=== PATIENT | male | born 1990 | race Two or more races ===

== ENCOUNTER 2022-12-14 12:11 | Emergency (ER) | payer MEDICAID ==
[2022-12-14 12:32] LABS: BASOPHILS % (AUTO) 0.5 %; HCT - HEMATOCRIT 39.2 % (42.0-52.0); LYMPHOCYTES # (AUTO) 1.3 10^3/uL (1.5-3.5); LYMPHOCYTES % (AUTO) 23.8 %; MEAN CORPUSCULAR HEMOGLOBIN 24.3 pg (27.0-31.0); MEAN CORPUSCULAR HGB CONC 30.6 g/dL (32.0-36.0); MEAN CORPUSCULAR VOLUME 79.5 fL (80.0-94.0); MEAN PLATELET VOLUME 11.2 fL (7.4-11.4); MONOCYTES # (AUTO) 0.7 10^3/uL (0.0-1.0); MONOCYTES % (AUTO) 12.3 %; NEUTROPHILS # (AUTO) 3.5 10^3/uL (1.5-6.6); NEUTROPHILS % (AUTO) 63.2 %; PLT - PLATELET COUNT 253 10^3/uL (130-450); RED BLOOD COUNT 4.93 10^6/uL (4.70-6.10); RED CELL DISTRIBUTION WIDTH 17.7 % (12.0-15.0); WHITE BLOOD COUNT 5.5 x10^3/uL (4.8-10.8)
[2022-12-14 12:46] LABS: ALBUMIN 4.3 g/dL (3.2-5.5); ALBUMIN/GLOBULIN RATIO 1.4 (1.0-2.2); BILIRUBIN,TOTAL 0.4 mg/dL (0.2-1.0); CREATININE 0.9 mg/dL (0.6-1.2); POTASSIUM 4.4 mmol/L (3.5-5.0); TOTAL PROTEIN 7.3 g/dL (6.7-8.2)
[2022-12-14 13:16] LABS: BILIRUBIN,URINE NEGATIVE (NEGATIVE); GLUCOSE, URINE (UA) NEGATIVE (NEGATIVE); KETONES,URINE (UA) TRACE mg/dL (NEGATIVE); LEUKOCYTE ESTERASE, URINE NEGATIVE (NEGATIVE); NITRITE,URINE NEGATIVE (NEGATIVE); OCCULT BLOOD,URINE NEGATIVE (NEGATIVE); PH,URINE 6.5 PH (5.0-7.5); PROTEIN,URINE NEGATIVE (NEGATIVE); UROBILINOGEN,URINE 2 E.U./dL (NORMAL)
[2022-12-14 13:18] LABS: CLARITY,URINE CLEAR (CLEAR)
[2022-12-14] MEDS ORDERED: iohexoL-300 100 ML VIAL ONE (13:31)
[2022-12-14] MEDS ORDERED: iohexoL-300 100 ML VIAL IVP ONE (13:52)
[2022-12-14] MEDS ORDERED: ONDANSETRON 4 MG/2 ML VIAL IVP STA (14:27)
[2022-12-14] MEDS ORDERED: HYDROmorphone 1 MG/ML CARPUJECT IVP STA (14:27)
--- NOTE | 2022-12-14 14:28 | CT Report ---
PROCEDURE: ABDOMEN/PELVIS W INDICATIONS: LLQ abd pain CONTRAST: 100ml Omnipaque 300 TECHNIQUE: After the administration of IV contrast, 5 mm thick sections acquired from the diaphragms to the symp hysis. 5 mm thick coronal and sagittal reformats were acquired. For radiation dose reduction, the f ollowing was used: automated exposure control, adjustment of mA and/or kV according to patient size. COMPARISON: None. FINDINGS: Image quality: Excellent. ABDOMEN: Lung bases: Lung bases are clear. Heart size is normal. Solid organs: Liver is enlarged and extends towards the left laterally, lateral to the spleen. The sp saúl demonstrates normal size and demonstrates no suspicious lesions. Calcified splenic granulomas ca n be seen. Gallbladder wall does not appear thickened. Biliary system is non dilated. Pancreas en hances normally. No adrenal nodules. Kidneys demonstrate normal size and enhancement, without hydronephrosis. At the superior pole of the right kidney, there is a 1.4 cm water density cyst seen. Peritoneum and bowel: In this patient with this given history, scrutiny is given to the sigmoid colo n and the left lower quadrant of the abdomen. Negative for diverticulitis. No focal left lower quadra nt inflammatory changes are seen. Bariatric surgery can be seen. Bowel loops demonstrate normal wall thickness and caliber. No free fluid or air. A normal appendix is incidentally noted. Nodes and vessels: No retroperitoneal or mesenteric adenopathy by size criteria. Aorta and inferior vena cava are normal in size. Miscellaneous: No ventral hernias. PELVIS: Genitourinary: Bladder wall thickness is normal. Miscellaneous: No inguinal hernias or adenopathy. Bones: No suspicious bony lesions. Minimal, remote appearing thoracolumbar anterior wedge deformiti es are seen. No acute appearing vertebral body compression fractures. Left proximal femur hardware i s partially seen. IMPRESSION: Negative for diverticulitis No focal inflammatory change can be seen involving the left lower quadrant of the abdomen. Additional findings: Hepatomegaly Prior granulomatous exposure. Bariatric surgery Low-density right renal cyst Normal appendix Left femur hardware Reviewed by: Rojas Matute MD on 12/14/2022 1:26 PM AKST Approved by: Rojas Matute MD on 12/14/2022 1:26 PM AK Station ID: [id number]
--- NOTE | 2022-12-14 14:51 | ED Physician Documentation ---
History of Present Illness - Stated complaint Stated Complaint: LT SIDE ABD PX - Chief complaint Chief Complaint: Abd Pain - Additonal information Additional information: Patient is a 32-year-old male presenting to the emergency department with left- sided abdominal pain. Reports has been having left-sided abdominal pain for several months. Reports that he has been having intermittent diarrhea and constipation. No exacerbating or alleviating factors associated with his pain. He has a past medical significant for multiple left lower extremity surgeries performed at the [facility]. Currently takes oxycodone and gabapentin for chronic pain. Denies previous abdominal surgeries. Does report that he has a history of peptic ulcer disease which was diagnosed in [place] 7 years ago. Currently does not take any Protonix or Pepcid. Denies dark tarry stools or blood in stool. Reports that his pain has been increasing in frequency and severity which is what prompted him come to the emergency department today. Has a primary care doctor but is unable to tell me their name. Otherwise denies for fever, chills, chest pain, shortness of breath, new rash, weakness/numbness/tingling in any extremity. Review of Systems Constitutional: denies: Fever, Chills Eyes: denies: Loss of vision Ears: denies: Loss of hearing Nose: denies: Rhinorrhea / runny nose Throat: denies: Dental pain / toothache Cardiac: denies: Chest pain / pressure Respiratory: denies: Dyspnea GI: reports: Abdominal Pain, Constipation, Diarrhea. denies: Nausea, Vomiting, Hematemesis, Bloody / black stool, Reviewed and negative : denies: Dysuria, Frequency Skin: denies: Rash PD PAST MEDICAL HISTORY - Past Medical History Past Medical History: Yes Cardiovascular: None Respiratory: None Neuro: Headaches Endocrine/Autoimmune: None GI: Ulcers : None HEENT: None Psych: None Musculoskeletal: Other Derm: None - Past Surgical History Past Surgical History: Yes Ortho: Other - Present Medications Home Medications: Ambulatory Orders Medication Instructions Recorded Confirmed Gabapentin [Neurontin] 300 mg PO PRN PRN 12/14/22 12/14/22 Oxycodone HCl 10 mg PO Q6HR PRN 12/14/22 12/14/22 Pantoprazole Sodium [Protonix] 40 mg PO DAILY #30 tab 12/14/22 polyethylene glycoL 3350 17 gm PO DAILY #30 packet 12/14/22 [Polyethylene Glycol 3350] - Allergies Allergies/Adverse Reactions: Allergies Allergy/AdvReac Type Severity Reaction Status Date / Time No Known Drug Allergies Allergy Verified 12/14/22 12:18 - Social History Does the pt smoke?: No Smoking Status: Never smoker Does the pt drink ETOH?: No Does the pt have substance abuse?: No - Immunizations Immunizations are current?: Yes PD ED PE NORMAL - Vitals Vital signs reviewed: Yes - General General: Alert and oriented X 3, No acute distress, Well developed/nourished, Ot her (Obese) - HEENT HEENT: Atraumatic, PERRL, EOMI, Ears normal, Moist mucous membranes, Pharynx benign - Neck Neck: Supple, no meningeal sign, No bony TTP, No adenopathy, Thyroid normal, No JVD - Cardiac Cardiac: RRR, No murmur, No gallop - Respiratory Respiratory: No respiratory distress, Clear bilaterally - Abdomen Abdomen: Normal bowel sounds, Non tender, No organomegaly - Male Male : Deferred - Rectal Rectal: Deferred - Derm Derm: Normal color - Extremities Extremities: No deformity, No edema Results - Vitals Vitals: Vital Signs - 24 hr 12/14/22 12/14/22 12/14/22 12:16 12:36 14:27 Temperature 36.5 C Heart Rate 73 71 55 L Respiratory 16 16 16 Rate Blood Pressure 114/60 113/66 91/57 L O2 Saturation 100 100 100 Oxygen O2 Source Room air - Labs Labs: Laboratory Tests 12/14/22 12/14/22 12/14/22 12:29 12:29 13:10 WBC 5.5 RBC 4.93 Hgb 12.0 L Hct 39.2 L MCV 79.5 L MCH 24.3 L MCHC 30.6 L RDW 17.7 H Plt Count 253 MPV 11.2 Neut # (Auto) 3.5 Lymph # (Auto) 1.3 L Sac # (Auto) 0.7 Eos # (Auto) 0.0 Baso # (Auto) 0.0 Absolute Nucleated RBC 0.00 Nucleated RBC % 0.0 Sodium 136 Potassium 4.4 Chloride 102 Carbon Dioxide 26 Anion Gap 8.0 BUN 19 Creatinine 0.9 Estimated GFR (MDRD) 97 Glucose 80 Calcium 9.0 Total Bilirubin 0.4 AST 14 ALT 12 Alkaline Phosphatase 67 Total Protein 7.3 Albumin 4.3 Globulin 3.0 Albumin/Globulin Ratio 1.4 Lipase 34 Urine Color YELLOW Urine Clarity CLEAR Urine pH 6.5 Ur Specific Townsend 1.025 Urine Protein NEGATIVE Urine Glucose (UA) NEGATIVE Urine Ketones TRACE Urine Occult Blood NEGATIVE Urine Nitrite NEGATIVE Urine Bilirubin NEGATIVE Urine Urobilinogen 2 H Ur Leukocyte Esterase NEGATIVE Ur Microscopic Review NOT INDICATED Urine Culture Comments NOT INDICATED PD Medical Decision Making - ED course Complexity details: reviewed results, re-evaluated patient, considered differential, d/w patient Reviewed Lab Results: Patient has a low level anemia. Previous labs unavailable. ED course: Patient is a 32-year-old male presenting to the emergency department with several months of left lower quadrant abdominal pain with associated intermittent diarrhea and constipation. Afebrile, hemodynamically stable and arrival to the emergency department. Abdominal exam benign. Labs negative for any leukocytosis or significant electrolyte abnormality. Did demonstrate a mild anemia of uncertain chronicity. Patient denied any black or tarry stools. Did report a history of gastric ulcers and states that he does not currently take any medications for this. Reported his only medications at this time are oxycodone and gabapentin which he takes for chronic pain to the left leg. CT of the abdomen pelvis was obtained which was negative for any acute intra- abdominal or pelvic pathology. At this time I will initiate a course of Protonix as well as MiraLAX to act as bowel regimen. I will provide the patient with contact information for [facility] for follow-up however I will encourage him to follow-up with his primary care doctor. Otherwise clear return precautions given prior to discharge. Departure - Departure Disposition: 01 Home, Self Care Clinical Impression: Abdominal pain Qualifiers: Abdominal location: left lower quadrant Qualified Code(s): R10.32 - Left lower quadrant pain Instructions: ED Abdominal Pain Unkn Cause Male Prescriptions: polyethylene glycoL 3350 [Polyethylene Glycol 3350] 17 gm PO DAILY #30 packet Pantoprazole Sodium [Protonix] 40 mg PO DAILY #30 tab Comments: Thank you for allowing us to care for you today at [facility]. Prescription sent electronically to [facility]. Today in the emergency department you were evaluated for any possible life- threatening medical emergency. All the testing performed in the emergency department today including your blood work, the CT scan of your abdomen and pelvis were all very reassuring. I would like you to follow-up with your primary care doctor to make a follow-up appointment as soon as possible. I have also included contact information for a local area cell attendant to follow-up with as well. In the meantime would like you to begin some oral antiacid medications as well as a daily course of MiraLAX to act as a bowel regimen. If it anytime you have new or worsening symptoms please not hesitate to return.
[2022-12-14 15:26] VITALS: BP 94/84
== END 2022-12-14 15:26 | disposition home or self-care (01) ==
LOC: ED 12:11
DX: R10.32 Left lower quadrant pain (principal)
CPT/HCPCS: 36415; 74177; 80053; 81003; 83690; 85025; 96374; 96375; 99284; J1170; Q9967; 81001; 87086

== ENCOUNTER 2023-02-01 10:19 | Emergency (ER) | payer MEDICAID ==
--- NOTE | 2023-02-01 11:07 | ED Physician Documentation ---
PD HPI UPPER EXT INJURY - Stated complaint Stated Complaint: FALL/R SHOULDER PX - Chief complaint Chief Complaint: Trauma Ext - History of Present Illness Location: Right, Shoulder Timing - onset: How many days ago (2) Timing - duration: Days (2) Timing - details: Abrupt onset, Still present Improved by: Rest Worsened by: Moving Associated symptoms: No: Weakness, Numbness, Swelling Similar symptoms before: Has not had sx before Review of Systems Skin: denies: Abrasion (s), Laceration (s) Neurologic: denies: Focal weakness, Numbness PD PAST MEDICAL HISTORY - Past Medical History Cardiovascular: None Respiratory: None Neuro: Headaches Endocrine/Autoimmune: None GI: Ulcers : None HEENT: None Psych: None Musculoskeletal: Other (has a left ankle injury and is seeing ortho soon for that. Using crutches for partial weight bearing. ) Derm: None - Past Surgical History Past Surgical History: Yes Ortho: Other - Present Medications Home Medications: Ambulatory Orders Medication Instructions Recorded Confirmed Gabapentin [Neurontin] 300 mg PO PRN PRN 12/14/22 12/14/22 Oxycodone HCl 10 mg PO Q6HR PRN 12/14/22 12/14/22 Pantoprazole Sodium [Protonix] 40 mg PO DAILY #30 tab 12/14/22 polyethylene glycoL 3350 17 gm PO DAILY #30 packet 12/14/22 [Polyethylene Glycol 3350] HYDROcod/ACETAM 5/325 [Ripley 5/325] 1 ea PO Q6H PRN #12 tablet 02/01/23 HYDROcod/ACETAM 5/325 [Ripley 5/325] 1 ea PO Q6H PRN #18 tablet 02/01/23 Ibuprofen [Motrin] 600 mg PO TID PRN #25 tab 02/01/23 - Allergies Allergies/Adverse Reactions: Allergies Allergy/AdvReac Type Severity Reaction Status Date / Time No Known Drug Allergies Allergy Verified 02/01/23 10:45 - Social History Does the pt smoke?: No Smoking Status: Never smoker Does the pt drink ETOH?: No Does the pt have substance abuse?: No - Immunizations Immunizations are current?: Yes PD ED PE NORMAL - Vitals Vital signs reviewed: Yes - General General: Alert and oriented X 3, Well developed/nourished - Derm Derm: Normal color, Warm and dry - Extremities Extremities: Other (right shoulder tender anterior aspect. Pain with roM in most directions. no noted effusion. ) - Neuro Neuro: Alert and oriented X 3, No motor deficit, No sensory deficit Results - Vitals Vitals: Vital Signs - 24 hr 02/01/23 02/01/23 10:25 12:00 Temperature 37.1 C Heart Rate 89 78 Respiratory 16 16 Rate Blood Pressure 146/67 H 140/85 H O2 Saturation 100 98 Oxygen O2 Source Room air - Rads (name of study) rightshoulder Relevant Findings:: Prelim report reviewed, EMP independent interpretation of test (no fracture nor dislocation; presume some rotator cuff strain or partial tear. Sling and meds, with ortho followup once it is less acutely painful. ), See rad report PD Medical Decision Making - ED course Complexity details: considered differential (fell to right shoulder. Pain with ROM. seems potential rotator cuff injury. Will need recheck after less painful. ), d/w patient Departure - Departure Disposition: 01 Home, Self Care Clinical Impression: Right shoulder strain Qualifiers: Encounter type: initial encounter Qualified Code(s): S46.911A - Strain of unspecified muscle, fascia and tendon at shoulder and upper arm level, right arm, initial encounter Accidental fall Qualifiers: Encounter type: initial encounter Qualified Code(s): W19.XXXA - Unspecified fall, initial encounter Condition: Stable Record reviewed to determine appropriate education?: Yes Instructions: ED Sprain Shoulder Follow-Up: DI HORTON DO [Primary Care Provider] - [facility] [Provider Group] Prescriptions: Ibuprofen [Motrin] 600 mg PO TID PRN #25 tab PRN Reason: Pain HYDROcod/ACETAM 5/325 [Ripley 5/325] 1 ea PO Q6H PRN #12 tablet PRN Reason: Pain HYDROcod/ACETAM 5/325 [Ripley 5/325] 1 ea PO Q6H PRN #18 tablet PRN Reason: Pain Comments: Your x-ray is normal without any fractures no dislocations. However you do have significant pain and some swelling in the shoulder signifying likely ligament or tendon injuries such as the rotator cuff. At this point it is hard to tell how injured because of the degree of discomfort with motion. I would treat it with a sling and no use of the right shoulder for the next several days to a week and then another week or 2 of no overhead reaching, push pull, lifting. Gentle range of motion of the shoulder a few times daily is good to keep it from being stiff. Use anti-inflammatories of ibuprofen 3 times daily for the next week or so. Add Tylenol every 4-6 hours if needed for pain or hydrocodone if needed for worse pain. I sent your prescriptions to your preferred pharmacy. If this is improving well over the next 1 to 2 weeks then resume more normal use of it. If you are having persistent discomfort on motion, then follow-up with orthopedics in about 1-1/2 to 2 weeks, call for an appointment. I am prescribing a short course of narcotic pain medication for you. These are potentially dangerous and addictive medications that should be used carefully. These medications may constipate you. Take an gwdl-wfc-vikvcep stool softener such as docusate twice daily with plenty of water while taking these medications. If you go 24 hours without a bowel movement, take ohfi-dlb-synsunn MiraLAX, per package instructions. Do not drink or drive while taking these medications. If you received narcotic or sedating medications while in the emergency department do not drive for 24 hours. Store this medication in a safe, secure place and out of reach of children. It is a violation of federal law to give or sell this medication to another person or to use in a manner other than prescribed. The ED will not refill narcotic prescriptions, including prescriptions lost or stolen. You can dispose of unwanted medications at the [facility]'s office or at several pharmacies such as [facility]. Discharge Date/Time: 02/01/23 12:00
--- NOTE | 2023-02-01 11:09 | XRAY Report ---
PROCEDURE: Shoulder 3 View RT INDICATIONS: Trauma, GLF, limited ROM TECHNIQUE: 3 views of the shoulder were acquired. COMPARISON: None. FINDINGS: Bones: No fractures or dislocations. No suspicious bony lesions. Visualized ribs appear intact. Soft tissues: Right shoulder calcific tendinopathy can be seen. The visualized lung demonstrates a no rmal appearance. IMPRESSION: No acute plain film abnormality is identified. If it would be helpful for clinical management decision making, please consider a dedicated, schedule d shoulder MRI for further evaluation (assuming that there is no contraindication). Reviewed by: Rojas Matute MD on 02/01/2023 10:08 AM IDANIA Approved by: Rojas Matute MD on 02/01/2023 10:08 AM IDANIA Station ID: [id number]
[2023-02-01] MEDS ORDERED: HYDROcod/ACETAM 5/325 MG TABLET PO STA (11:20)
[2023-02-01] MEDS ORDERED: IBUPROFEN 600 MG TABLET PO STA (11:20)
[2023-02-01 12:10] VITALS: BP 140/85
== END 2023-02-01 12:00 | disposition home or self-care (01) ==
LOC: ED 10:19
DX: S46.911A Strain of unspecified muscle, fascia and tendon at shoulder and upper arm level, right arm, initial encounter (principal); W19.XXXA Unspecified fall, initial encounter
CPT/HCPCS: 73030; 99283; 99284; A9270

== ENCOUNTER 2023-02-02 07:27 | Emergency (ER) | payer MEDICAID ==
[2023-02-02] MEDS ORDERED: DEXAMETHASONE 10 MG/ML VIAL PO STA (07:49)
[2023-02-02] MEDS ORDERED: KETOROLAC 60 MG/2 ML VIAL IM STA (07:49)
[2023-02-02] MEDS ORDERED: CHERRY SYRUP 10 ML UDC PO ONE (07:49)
--- NOTE | 2023-02-02 07:53 | ED Physician Documentation ---
PD HPI UPPER EXT INJURY - Stated complaint Stated Complaint: R ARM PX - Chief complaint Chief Complaint: Ext Problem - History obtained from History obtained from: Patient - History of Present Illness Location: Right, Shoulder Type of injury: Fall Where injury occurred: Home Timing - onset: How many days ago (4) Timing - duration: Days (4) Pain level max: 10 Pain level now: 10 Improved by: Rest Worsened by: Moving, Palpating Associated symptoms: No: Weakness, Numbness, Tingling, Swelling Contributing factors: No: Anticoagulated - Additonal information Additional information: 32-year-old male presents to the emergency department stating he was using crutches on Thursday when he slipped, fell and injured the right shoulder. He was seen here yesterday and had negative x-rays. Diagnosed with a rotator cuff injury. Given hydrocodone. The patient states that he has been on a lot of narcotics since his leg surgery last summer and states the hydrocodone does not work and is requesting something stronger for pain. No fever. No chills. No recurrent fall. Worse with movement, better with rest. Review of Systems Constitutional: denies: Fever GI: denies: Vomiting Neurologic: denies: Headache, Head injury PD PAST MEDICAL HISTORY - Past Medical History Past Medical History: Yes Cardiovascular: None Respiratory: None Neuro: Headaches Endocrine/Autoimmune: None GI: Ulcers : None HEENT: None Psych: None Musculoskeletal: Other (has a left ankle injury and is seeing ortho soon for that. Using crutches for partial weight bearing. ) Derm: None - Past Surgical History Past Surgical History: Yes Ortho: Other - Present Medications Home Medications: Ambulatory Orders Medication Instructions Recorded Confirmed Pantoprazole Sodium [Protonix] 40 mg PO DAILY #30 tab 12/14/22 02/02/23 polyethylene glycoL 3350 17 gm PO DAILY #30 packet 12/14/22 02/02/23 [Polyethylene Glycol 3350] HYDROcod/ACETAM 5/325 [Lyndon 5/325] 1 ea PO Q6H PRN #18 tablet 02/01/23 02/02/23 Ibuprofen [Motrin] 600 mg PO TID PRN #25 tab 02/01/23 02/02/23 Diclofenac Sodium 1% Gel [Voltaren 2 gm TOP QID PRN #1 each 02/02/23 Gel] oxyCODONE [Roxicodone] 5 - 10 mg PO Q6H PRN #14 tablet 02/02/23 MDD 6 - Allergies Allergies/Adverse Reactions: Allergies Allergy/AdvReac Type Severity Reaction Status Date / Time No Known Drug Allergies Allergy Verified 02/02/23 07:40 - Social History Does the pt smoke?: No Smoking Status: Never smoker Does the pt drink ETOH?: No Does the pt have substance abuse?: No - Immunizations Immunizations are current?: Yes PD ED PE NORMAL - Vitals Vital signs reviewed: Yes - General General: Alert and oriented X 3, No acute distress - HEENT HEENT: Moist mucous membranes - Neck Neck: Supple, no meningeal sign - Cardiac Cardiac: RRR - Respiratory Respiratory: No respiratory distress, Clear bilaterally - Extremities Extremities: Other (R shoulder - TTP over the R shoulder at the biceps tendon insertion and rotator cuff. No pain with pronation or supination of the hand, very limited ROM with extension of the shoulder, flexion or abduction. NVI.) - Neuro Neuro: Alert and oriented X 3 Results - Vitals Vitals: Vital Signs - 24 hr 02/02/23 07:33 Temperature 37.5 C Heart Rate 90 Respiratory 16 Rate Blood Pressure 132/75 H O2 Saturation 99 Oxygen O2 Source Room air PD Medical Decision Making - ED course Complexity details: reviewed results, re-evaluated patient, considered differential, d/w patient ED course: Patient has already had an x-ray to the shoulder. No acute findings on x-ray yesterday. Appears to have rotator cuff tear versus tendinitis. We will change his pain medication from hydrocodone to oxycodone. We will prescribe Voltaren gel as well. Patient was instructed regarding stretching including wall walks. Recommend that he obtain a shoulder brace from the store such as [employer] as well. Recommend that he follow-up with his doctor and orthopedics for further care. No indication for emergent imaging today. Patient counseled regarding signs and symptoms for which I believe and urgent re-evaluation would be necessary. Patient with good understanding of and agreement to plan and is comfortable going home at this time This document was made in part using voice recognition software. While efforts are made to proofread this document, sound alike and grammatical errors may occur. Departure - Departure Disposition: 01 Home, Self Care Clinical Impression: Rotator cuff strain Qualifiers: Encounter type: initial encounter Laterality: right Qualified Code(s): S46.011A - Strain of muscle(s) and tendon(s) of the rotator cuff of right shoulder, initial encounter Condition: Good Instructions: Rotator Cuff Injury, ED Tendinitis Rotator Cuff Follow-Up: DI HORTON DO [Primary Care Provider] - Within 1 week Prescriptions: oxyCODONE [Roxicodone] 5 - 10 mg PO Q6H PRN #14 tablet MDD 6 PRN Reason: pain Diclofenac Sodium 1% Gel [Voltaren Gel] 2 gm TOP QID PRN #1 each PRN Reason: shoulder pain Comments: Your prescriptions were sent to [facility] in [place]. Please follow-up with your doctor for further care. As we discussed, you need to continue to stretch your rotator cuff, this will continue to help the pain. You can also buy a brace on [employer] they are called compression shoulder braces. I am prescribing a short course of narcotic pain medication for you. These are potentially dangerous and addictive medications that should be used carefully. These medications may constipate you. Take an qbzo-gaz-etdommn stool softener (docusate) twice daily with plenty of water while taking these medications. If you go 24 hours without a bowel movement, take qtqi-heb-dylqfuc miralax, per pac kage instructions. Do not drink or drive while taking these medications. If you received narcotic or sedating medications while in the emergency department, do not drive for 24 hours. Store this medication in a safe, secure place and out of reach of children. It is a violation of federal law to give or sell this medication to another person or to use in a manner other than prescribed. The ED will not refill narcotic prescriptions, including prescriptions lost or stolen. To dispose of unwanted medications: 1. [facility] [address] in [place] has a medication drop box. They accept prescription medications (in pill form) Thursday through Thursday 9:00 a.m. to 5:00 p.m. 2. [facility] [employer] accepts prescription medications (in pill form only) for disposal year round. Call for more information. 3. Contact the [facility] for the next [facility] sponsored prescription drug collection event. , [phone], or [phone];
[2023-02-02 08:27] VITALS: BP 112/71
== END 2023-02-02 08:26 | disposition home or self-care (01) ==
LOC: ED 07:27
DX: S46.011A Strain of muscle(s) and tendon(s) of the rotator cuff of right shoulder, initial encounter (principal); W19.XXXA Unspecified fall, initial encounter
CPT/HCPCS: 96372; 99282; 99283; A9270

== ENCOUNTER 2023-02-09 15:53 | Outpatient (CLI) | payer MEDICAID ==
--- NOTE | 2023-02-09 16:55 | XRAY Report ---
PROCEDURE: Tib/Fib BILAT INDICATIONS: UNSPECIFIED DEFORMITY OF LOWER LEG TECHNIQUE: 2 views of the tibia and fibula were acquired. COMPARISON: None FINDINGS: Right side: Intramedullary jena and interlocking screw fixation of the tibia. Proximal deformity with periosteal reaction is present. Mild to moderate lucency is seen surrounding the hardware, particular ly around the proximal tibia. There is also deformity with periosteal thickening in the mid fibular s haft. Left side: Intramedullary jena and interlocking screw fixation of the tibia, and partially seen femur. There is lucency surrounding the hardware, worse than the contralateral side, particularly around th e proximal tibia. Fracture deformity with periosteal thickening is present, including the mid fibular shaft. 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 L eft greater than right lucency surrounding the hardware could represent loosening. No prior images ar e available to assess the chronicity of these findings. If further imaging is necessary, consider CT or nuclear medicine bone scan. Reviewed by: Tima Morejon MD on 02/09/2023 4:54 PM PDT Approved by: Tima Morejon MD on 02/09/2023 4:54 PM PDT Station ID: [id number]
--- NOTE | 2023-02-09 17:13 | XRAY Report ---
PROCEDURE: Femurs 2V BILAT INDICATIONS: UNSPECIFIED DEFORMITY OF LOWER LEG TECHNIQUE: 3 views of the right and 3 views of the left femur were acquired. COMPARISON: None. FINDINGS: Bones: Right knee: No fracture or dislocation of the femur. The right hip has no significant degenerative ch anges. The right knee has degenerative changes especially involving the medial joint space with mundo nt space narrowing. A tibial intramedullary jena is partially seen. Left knee: No fracture or dislocation of the femur. There is an intramedullary jena within the femur a nd partially seen within the proximal tibia. The knee has degenerative changes especially involving t he medial compartment. A distal femoral diaphysis fracture appears well-healed. Soft tissues: No suspicious soft tissue calcifications or masses. IMPRESSION: 1. No acute abnormality. 2. Hardware in the left femur and partially visualized hardware in the proximal tibias appears intact with no pericardial hardware lucency to suggest loosening. Reviewed by: Laci Porter on 02/09/2023 5:11 PM PDT Approved by: Laci Porter on 02/09/2023 5:11 PM PDT Station ID: [id number]
== END 2023-02-09 15:54 | disposition home or self-care (01) ==
LOC: DI 15:53
PROVIDERS: ATTEND Physician Assistant
DX: M21.952 Unspecified acquired deformity of left thigh (principal); M21.951 Unspecified acquired deformity of right thigh; M21.962 Unspecified acquired deformity of left lower leg; M21.961 Unspecified acquired deformity of right lower leg

== ENCOUNTER 2023-03-31 18:23 | Emergency (ER) | payer MEDICAID ==
[2023-03-31 19:04] LABS: BASOPHILS # (AUTO) 0.1 10^3/uL (0.0-0.1); BASOPHILS % (AUTO) 0.6 %; HCT - HEMATOCRIT 41.9 % (42.0-52.0); HGB - HEMOGLOBIN 13.1 g/dL (14.0-18.0); LYMPHOCYTES # (AUTO) 1.6 10^3/uL (1.5-3.5); MEAN CORPUSCULAR HEMOGLOBIN 24.7 pg (27.0-31.0); MEAN CORPUSCULAR HGB CONC 31.3 g/dL (32.0-36.0); MEAN CORPUSCULAR VOLUME 78.9 fL (80.0-94.0); MEAN PLATELET VOLUME 11.6 fL (7.4-11.4); MONOCYTES # (AUTO) 0.9 10^3/uL (0.0-1.0); NEUTROPHILS # (AUTO) 5.6 10^3/uL (1.5-6.6); NEUTROPHILS % (AUTO) 68.2 %; PLT - PLATELET COUNT 283 10^3/uL (130-450); RED BLOOD COUNT 5.31 10^6/uL (4.70-6.10); RED CELL DISTRIBUTION WIDTH 16.7 % (12.0-15.0); WHITE BLOOD COUNT 8.2 x10^3/uL (4.8-10.8)
[2023-03-31 19:21] LABS: ALBUMIN 4.4 g/dL (3.2-5.5); ALBUMIN/GLOBULIN RATIO 1.3 (1.0-2.2); BILIRUBIN,TOTAL 0.5 mg/dL (0.2-1.0); CREATININE 0.7 mg/dL (0.6-1.2); POTASSIUM 4.2 mmol/L (3.5-5.0); TOTAL PROTEIN 7.7 g/dL (6.7-8.2)
[2023-03-31] MEDS ORDERED: SODIUM CHLORIDE 0.9% 1,000 ML IV STA (19:55)
[2023-03-31] MEDS ORDERED: ONDANSETRON 4 MG/2 ML VIAL IVP STA (19:55)
--- NOTE | 2023-03-31 20:07 | ED Physician Documentation ---
PD HPI ABD PAIN - Stated complaint Stated Complaint: MALE /WEAK/NAUSEA - Chief complaint Chief Complaint: Abd Pain - History obtained from History obtained from: Patient - History of Present Illness Pain level max: 5 Pain level now: 5 Quality: Aching, Pain. No: Cramping - Additional information Additional information: Patient is a 33-year-old male who presents to the emergency department with abdominal pain, nausea, vomiting and diarrhea. He noted bright red blood in the stool today as well. He states he has left lower quadrant abdominal pain. Nothing makes it better or worse. No fevers. No chills. Complains of generalized weakness. Patient denies any GI history. Has not had similar symptoms previously. He states he just feels tired and weak today. Patient is not on blood thinners. Review of Systems Constitutional: denies: Fever, Chills Throat: denies: Sore throat Cardiac: denies: Chest pain / pressure, Palpitations Respiratory: denies: Cough GI: reports: Vomiting, Diarrhea, Bloody / black stool (Bright red blood in the stool this afternoon.). denies: Hematemesis Skin: denies: Rash Musculoskeletal: denies: Neck pain, Back pain Neurologic: denies: Headache PD PAST MEDICAL HISTORY - Past Medical History Cardiovascular: None Respiratory: None Neuro: Headaches Endocrine/Autoimmune: None GI: Ulcers : None HEENT: None Psych: None Musculoskeletal: Other Derm: None - Past Surgical History Past Surgical History: Yes Ortho: Other - Present Medications Home Medications: Ambulatory Orders Medication Instructions Recorded Confirmed Pantoprazole Sodium [Protonix] 40 mg PO DAILY #30 tab 12/14/22 03/31/23 polyethylene glycoL 3350 17 gm PO DAILY #30 packet 12/14/22 03/31/23 [Polyethylene Glycol 3350] HYDROcod/ACETAM 5/325 [Dewart 5/325] 1 ea PO Q6H PRN #18 tablet 02/01/23 02/02/23 Ibuprofen [Motrin] 600 mg PO TID PRN #25 tab 02/01/23 03/31/23 Diclofenac Sodium 1% Gel [Voltaren 2 gm TOP QID PRN #1 each 02/02/23 Gel] oxyCODONE [Roxicodone] 5 - 10 mg PO Q6H PRN #14 tablet 02/02/23 03/31/23 MDD 6 Cyclobenzaprine [Flexeril] 10 mg PO DAILY 03/31/23 03/31/23 Ondansetron Odt [Zofran] 4 mg TL Q6H PRN #10 tablet 03/31/23 tiZANidine [Zanaflex] 4 mg PO DAILY 03/31/23 03/31/23 - Allergies Allergies/Adverse Reactions: Allergies Allergy/AdvReac Type Severity Reaction Status Date / Time No Known Drug Allergies Allergy Verified 03/31/23 18:29 - Social History Does the pt smoke?: No Smoking Status: Never smoker Does the pt drink ETOH?: No Does the pt have substance abuse?: No - Immunizations Immunizations are current?: Yes PD ED PE NORMAL - Vitals Vital signs reviewed: Yes - General General: Alert and oriented X 3, No acute distress - HEENT HEENT: Moist mucous membranes - Neck Neck: Supple, no meningeal sign - Cardiac Cardiac: RRR, Strong equal pulses - Respiratory Respiratory: No respiratory distress, Clear bilaterally - Abdomen Abdomen: Soft, Non distended, Other (Mild tenderness palpation left lower quadrant. No peritoneal signs) - Derm Derm: Warm and dry - Extremities Extremities: No edema, No calf tenderness / cord - Neuro Neuro: Alert and oriented X 3 - Psych Psych: Normal mood, Normal affect Results - Vitals Vitals: Vital Signs - 24 hr 03/31/23 03/31/23 18:29 21:18 Temperature 36.5 C Heart Rate 90 62 Respiratory 16 12 Rate Blood Pressure 132/64 H 107/65 O2 Saturation 99 100 Oxygen O2 Source Room air - Labs Labs: Laboratory Tests 03/31/23 03/31/23 18:57 18:57 WBC 8.2 RBC 5.31 Hgb 13.1 L Hct 41.9 L MCV 78.9 L MCH 24.7 L MCHC 31.3 L RDW 16.7 H Plt Count 283 MPV 11.6 H Neut # (Auto) 5.6 Lymph # (Auto) 1.6 [place] # (Auto) 0.9 Eos # (Auto) 0.0 Baso # (Auto) 0.1 Absolute Nucleated RBC 0.00 Nucleated RBC % 0.0 Sodium 141 Potassium 4.2 Chloride 108 Carbon Dioxide 27 Anion Gap 6.0 BUN 16 Creatinine 0.7 Estimated GFR (MDRD) 128 Glucose 86 Calcium 9.0 Total Bilirubin 0.5 AST 16 ALT 13 Alkaline Phosphatase 72 Total Protein 7.7 Albumin 4.4 Globulin 3.3 Albumin/Globulin Ratio 1.3 Lipase 34 - Rads (name of study) ct abdomen/pelvis Relevant Findings:: Final report received, See rad report PD Medical Decision Making - ED course Complexity details: reviewed results, re-evaluated patient, considered differential, d/w patient ED course: Patient was given Zofran and IV fluids here. Feels much better. Tolerating p.o. without difficulty. His CT scan does not show any acute abnormalities. His CBC shows a very mild anemia. ER abdominal panel is normal. No elevated white blood cell count. Abdomen is soft, nontender nondistended on serial exam. We will treat as possible viral illness. He will monitor for further bleeding. If she develops fevers or worsening bleeding, he will return for further evaluation. Patient counseled regarding signs and symptoms for which I believe and urgent re-evaluation would be necessary. Patient with good understanding of and agreement to plan and is comfortable going home at this time This document was made in part using voice recognition software. While efforts are made to proofread this document, sound alike and grammatical errors may occur. Departure - Departure Disposition: 01 Home, Self Care Clinical Impression: Viral gastroenteritis Condition: Good Instructions: ED Gastroenteritis Viral Follow-Up: DI HORTON DO [Primary Care Provider] - Within 3 Days Prescriptions: Ondansetron Odt [Zofran] 4 mg TL Q6H PRN #10 tablet PRN Reason: Nausea / Vomiting Comments: Your laboratory testing does not show any acute abnormalities today. Your CT scan does not show any acute abnormalities either. Your prescription was sent to [facility] in [place]. Please follow-up with your doctor for further care if you fail to improve over the next 2 to 3 days. Please return if you worsen. Discharge Date/Time: 03/31/23 22:01
[2023-03-31] MEDS ORDERED: iohexoL-300 100 ML VIAL ONE (20:34)
[2023-03-31 21:18] VITALS: BP 107/65
--- NOTE | 2023-03-31 21:51 | CT Report ---
PROCEDURE: ABDOMEN/PELVIS W INDICATIONS: LLQ abd pain, hematochezia CONTRAST: 100mL Omni 300 TECHNIQUE: After the administration of intravenous contrast, 5 mm thick sections acquired from the diaphragms to the symphysis. 5 mm thick coronal and sagittal reformats were acquired. For radiation dose reducti on, the following was used: automated exposure control, adjustment of mA and/or kV according to genny ent size. COMPARISON: CT abdomen pelvis 12/14/2022 FINDINGS: Image quality: Excellent. Lung bases:There is minimal dependent atelectasis. Heart: Heart is normal in size. ABDOMEN: Liver: No mass lesion. Gallbladder: Within normal limits without calcified gallstones. Biliary ducts: No biliary ductal dilatation. Pancreas: Unremarkable. Spleen: Normal in size. Multiple calcifications are redemonstrated within the spleen consistent sequ elae of old granulomatous disease. Adrenal Glands: No adrenal nodules. Kidneys and Ureters: No hydronephrosis. There are 2 small right renal cysts. Stomach and Bowel: Postsurgical changes are again noted along the stomach. Stomach, small bowel loop s, and colon are normal in caliber and wall thickness. The appendix is normal. There is colonic diver ticulosis without acute diverticulitis. Peritoneum: No abnormal intraperitoneal fluid. No free air. Ventral Wall: No hernia. Abdominal Nodes: No retroperitoneal or mesenteric adenopathy by size criteria. Vessels: Aorta and inferior vena cava are normal in size. PELVIS: Pelvic Organs: Unremarkable. Bladder: Unremarkable. Pelvic Nodes: No enlarged lymph nodes. Miscellaneous: No inguinal hernias. Bones: Visualized osseous structures demonstrate no suspicious lesions. IMPRESSION: 1. No definite acute intra-abdominal abnormality. 2. Colonic diverticulosis without acute diverticulitis. Reviewed by: Charlie Soriano MD on 03/31/2023 9:50 PM PDT Approved by: Charlie Soriano MD on 03/31/2023 9:50 PM PDT Station ID: [id number]
[2023-03-31] MEDS ORDERED: iohexoL-300 100 ML VIAL IVP ONE (23:52)
== END 2023-03-31 22:01 | disposition home or self-care (01) ==
LOC: ED 18:23
DX: A08.4 Viral intestinal infection, unspecified (principal)
CPT/HCPCS: 36415; 74177; 80053; 83690; 85025; 96374; 99283; 99284; Q9967